=== PATIENT | female | born 1945 | race Caucasian/White ===

== ENCOUNTER 2017-04-11 12:13 | Emergency (ER) | payer OTHER ==
[~2017-04-11] VITALS: Ht 160 cm; Wt 54.6 kg
[2017-04-11 12:22] VITALS: TEMP 36.4; Ht 160 cm; Wt 54.6 kg
[2017-04-11] MEDS ORDERED: XYLOCAINE 1%/SOD BICARB 20 ML VIAL INFIL ONE (13:15)
--- NOTE | 2017-04-11 13:30 | DIAGNOSTIC IMAGING REPORT ---
HEAD WITHOUT CONTRAST (CT) CLINICAL HISTORY: 71 years-old Female with CHI/scalp lac. Acute fall with posterior head laceration TECHNIQUE: Multiple axial CT images of the head were obtained without contrast. A dose lowering technique was utilized adhering to the principles of ALARA. CT DOSE: 537.48 mGy.cm COMPARISON: None. FINDINGS: No acute intracranial hemorrhage, midline shift, mass, large territorial ischemia or abnormal extra-axial collection. Mild atrophy with ex vacuo ventriculomegaly changes. There are background chronic microvascular ischemic changes. Vascular calcifications are seen at the level of the skull base. More focal area of low-attenuation within the right rios radiata and external capsule suggests remote infarction. The calvarium is intact. The mastoid air cells, and middle ear cavities are clear. 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 Mild ethmoid mucosal thickening. Small left and moderate right abida bullosa. Minimal posterior scalp soft tissue swelling without opaque foreign body. No skull fracture. IMPRESSION: 1. Mild posterior scalp soft tissue swelling without acute intracranial abnormality. 2. Atrophy with chronic microvascular ischemic changes. Focal area of low-attenuation within the right rios radiata and external capsule distribution suggests remote infarction, however no comparison study available to determine chronicity. The above report was generated using voice recognition software. It may contain grammatical, syntax or spelling errors. Electronically signed by: Franky Singh M.D. 04/11/2017 1:29 PM Dictated Date/Time: 04/11/2017 1:25 PM
--- NOTE | 2017-04-11 13:53 | DIAGNOSTIC IMAGING REPORT ---
RIGHT SECOND TOE RADIOGRAPHS CLINICAL HISTORY: Right second toe pain following fall. COMPARISON: None FINDINGS: There is apparent fusion of the proximal and middle phalanges of the second toe with chronic deformity. No acute fracture of the right second toe is identified. 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 IMPRESSION: 1. No acute fracture. 2. 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 3. 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 Electronically signed by: David Alicia M.D. 04/11/2017 1:52 PM Dictated Date/Time: 04/11/2017 1:49 PM
[2017-04-11] MEDS ORDERED: TRAZ50TA35 PO (13:54)
[2017-04-11] MEDS ORDERED: SIMV20TA2 PO (13:54)
[2017-04-11] MEDS ORDERED: LNX125 PO (13:54)
[2017-04-11] MEDS ORDERED: ATEN-173 PO (13:54)
[2017-04-11] MEDS ORDERED: DABI1CAP PO (13:54)
--- NOTE | 2017-04-11 14:05 | EMERGENCY ROOM VISIT NOTE ---
ED Visit Note First contact with patient: 12:52 I did evaluate and examine this patient myself. I did guide management for the patient. I agree with the APC's assessment as discussed. Please see the APC's dictation for further details. I did independently review the x-rays and CT scan. The patient had a mechanical fall as she was carrying her dog up uncarpeted stairs wearing stockings. She has a negative head CT. She does have a history of prior stroke according to her. The patient's scalp laceration was repaired and the patient was discharged with head injury precautions.
[2017-04-11 14:45] VITALS: BP 115/76; PULSE 88; O2SAT 98
--- NOTE | 2017-04-11 14:48 | EMERGENCY ROOM VISIT NOTE ---
History First contact with patient: 12:52 Chief Complaint: LACERATION/CUT (SUT/DERMABOND) Stated Complaint: LACERATION-FELL DOWN STAIRS LAST NIGHT Nursing Triage Summary: fell down some wooden steps last night. lac to top of head. bleeding is controlled. denies loc. also c/o pain in right foot secnd toe. patient is taking pradaxa History of Present Illness The patient is a 71 year old female who presents to the Emergency Room with complaints of a head injury after slipping while walking up uncarpeted steps last night. The patient reports that she was carrying her dog when she slipped and fell backwards. She denies any loss of consciousness, neck pain or back pain. She denies any paresthesias or numbness of the upper or lower extremities. She also denies any shortness of breath, chest pain or abdominal pain. The daughter suggested that she come to the emergency department for further wound evaluation. The patient denies any significant headache. The patient does take Pradaxa for a prior history of CVA. Tetanus immunization is up-to-date. The patient also complains of some mild right second toe pain. She does report chronic deformities of her bilateral second toes. She denies any pain extending into the foot. Review of Systems 10 system review was performed and was negative except for pertinent positives and negatives as indicated in history of present illness Past Medical/Surgical History Medical Problems: (1) CVA (cerebral vascular accident) (2) Heart disease (3) Hypercholesterolemia (4) Hypertension Surgical Problems: (1) No history of previous surgery Social History Smoking Status: Never Smoker Alcohol Use: occasionally Marital Status: Housing Status: lives alone Occupation Status: retired Current/Historical Medications Scheduled Atenolol (Tenormin), Unknown Dose PO DAILY Dabigatran Etexilate Mesylate (Pradaxa), Unknown Dose PO BID Digoxin (Digoxin), Unknown Dose PO 5XWK Simvastatin (Zocor), Unknown Dose PO QPM Trazodone Hcl (Trazodone), 50 MG PO HS Physical Exam Vital Signs Date Time Temp Pulse Resp B/P (MAP) Pulse Ox O2 Delivery O2 Flow Rate FiO2 04/11/17 13:40 101 16 146/81 93 Room Air 04/11/17 12:22 36.4 100 18 156/85 97 Room Air Physical Exam CONSTITUTIONAL: Healthy and well nourished. Alert and oriented X 3 with positive affect. GCS 15. Patient does not appear in any acute distress. HEENT: Examination of the superior occiput shows a transverse 4.5 cm laceration without hematoma formation or active bleeding. Pupils equal, round and reactive. No subconjunctival hemorrhage, hemotympanum, raccoon's eyes or Horne sign. OROPHARYNX: No obvious intraoral trauma. No postnasal bleeding. NECK: Full active range of motion without discomfort. No tenderness to palpation through the central cervical spine or cervical musculature. RESPIRATORY: Clear to auscultation bilaterally with no wheezing, crackles, rhonchi or stridor. CARDIOVASCULAR: Regular rate and rhythm with no murmurs, rubs or gallops. GASTROINTESTINAL: Bowel sounds present in all quadrants. Soft and nontender to palpation. MUSCULOSKELETAL: Full range of motion of all major joints without discomfort. Should has no tenderness to palpation through the ribs or thoracolumbar spine. Examination shows overriding deformities of bilateral second toes. The patient does not have any open wounds of the right second toe, but does have mild generalized tenderness to palpation of the toe. Capillary refill is less than 2 seconds. There is no tenderness to palpation through the metatarsals or midfoot. INTEGUMENTARY: No rash or other significant dermatologic conditions noted. NEUROLOGIC: No focal neurologic deficits noted. Upper and lower extremities are sensory intact. Right second toe is also sensory intact. Medical Decision & Procedures ER Provider Diagnostic Interpretation: My interpretation of right second toe x-rays does not show any acute fractures. The patient does have a fusion of the PIP joint likely from degenerative process. Radiologist report was also reviewed with concurrence. Noncontrast CT of the head does not show any skull fractures or intracranial bleed. Territorial changes are noted within the right rios radiata and external capsule suggesting remote infarction. This is consistent with the patient's prior CVA history. Radiologist report is as follows: HEAD WITHOUT CONTRAST (CT) CLINICAL HISTORY: 71 years-old Female with CHI/scalp lac. Acute fall with posterior head laceration TECHNIQUE: Multiple axial CT images of the head were obtained without contrast. A dose lowering technique was utilized adhering to the principles of ALARA. CT DOSE: 537.48 mGy.cm COMPARISON: None. FINDINGS: No acute intracranial hemorrhage, midline shift, mass, large territorial ischemia or abnormal extra-axial collection. Mild atrophy with ex vacuo ventriculomegaly changes. There are background chronic microvascular ischemic changes. Vascular calcifications are seen at the level of the skull base. More focal area of low-attenuation within the right rios radiata and external capsule suggests remote infarction. The calvarium is intact. The mastoid air cells, and middle ear cavities are clear. 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 Mild ethmoid mucosal thickening. Small left and moderate right abida bullosa. Minimal posterior scalp soft tissue swelling without opaque foreign body. No skull fracture. IMPRESSION: 1. Mild posterior scalp soft tissue swelling without acute intracranial abnormality. 2. Atrophy with chronic microvascular ischemic changes. Focal area of low-attenuation within the right rios radiata and external capsule distribution suggests remote infarction, however no comparison study available to determine chronicity. Medications Administered Medications (Trade) Dose Ordered Sig/Castillo Route Start Time Stop Time Status Last Admin Dose Admin Lidocaine HCl (Buffered Lidocaine 1% Inj) 20 ml ONE ONCE INFIL 04/11/17 13:15 04/11/17 13:16 DC 04/11/17 13:15 20 ML Procedure Scalp laceration repair was performed under local anesthesia after receiving verbal consent from the patient. Using buffered 1% lidocaine without epinephrine, good local anesthesia was administered. The wound was peripherally cleansed with iodine, then irrigated with normal saline. Exploration of the wound does not show any underlying bleed or foreign debris. There is no laceration of the galea. The wound was then approximated using jenny with excellent results. Bacitracin was applied to the wound. ED Course Patient history and physical exam were performed. Nurse's notes were reviewed. Vital signs were reviewed and normal. The patient refused any analgesics. Noncontrast CT of the head was negative for skull fracture or intracranial bleed. Territorial changes are noted consistent with the patient's prior history of CVA. X-rays of the right second toe were also normal without acute fracture. Scalp laceration repair was recommended given its size and diastases. However, I did discuss risks of poor healing and infection given that this is a delayed closure. The patient voiced understanding, and elected primary closure with jenny. The patient tolerated the procedure well. The patient was instructed to follow-up with her PCP for staple removal in 7-10 days , sooner with any wound concerns. The patient was advised to seek further emergent reevaluation for any developing severe headache, vomiting, unusual drowsiness, coordination problems or other neurologic symptoms of concern. She was encouraged to take Tylenol as needed for pain. The patient's second and third toes of the right foot were also star taped for support. The patient was happy with plan of care, and voiced understanding of all discharge instructions, denying any significant pain at the time of discharge. The patient was also seen and examined by Dr. Driver, ED attending physician, who agrees with workup and plan of care. Medical Decision Medication Reconcilliation Current Medication List: was personally reviewed by me Blood Pressure Screening Patient's blood pressure: Normal blood pressure Impression Primary Impression: Occipital scalp laceration Additional Impressions: Contusion of second toe, right Fall down steps History of CVA (cerebrovascular accident) Departure Information Referrals No Doctor, Assigned (PCP) Patient Instructions [facility] Problem Qualifiers Primary Impression: Occipital scalp laceration Encounter type: initial encounter Qualified Codes: S01.01XA - Laceration without foreign body of scalp, initial encounter Additional Impressions: Contusion of second toe, right Encounter type: initial encounter Qualified Codes: S90.121A - Contusion of right lesser toe(s) without damage to nail, initial encounter Fall down steps Encounter type: initial encounter Qualified Codes: W10.8XXA - Fall (on) ( from) other stairs and steps, initial encounter
== END 2017-04-11 14:45 | disposition home or self-care (01) ==
LOC: C.EDB 12:15 → C.EDD 14:45
DX: S01.01XA Laceration without foreign body of scalp, initial encounter (principal); S90.121A Contusion of right lesser toe(s) without damage to nail, initial encounter; W10.8XXA Fall (on) (from) other stairs and steps, initial encounter; I63.9 Cerebral infarction, unspecified; I51.9 Heart disease, unspecified; E78.00 Pure hypercholesterolemia, unspecified; I10 Essential (primary) hypertension